=== PATIENT | female | born 1955 | race Caucasian/White ===

== ENCOUNTER 2020-06-19 16:54 | Emergency (ER) | payer OTHER ==
[2020-06-19 19:31] LABS: BASOPHIL 1.1 % (0-2); EOSINOPHIL 0.1 % (0-7); HCT 43.7 % (37.0-47.0); HGB 14.5 g/dl (12.5-16.0); LYMPHOCYTE 36.4 % (15-48); MCH 30.4 pg (25.0-31.0); MCHC 33.2 g/dL (32.0-36.0); MCV 91.6 fL (78.0-100.0); MONOCYTE 8.6 % (0-12); MPV 11.7 fL (6.0-9.5); NEUTROPHIL 53.7 % (41-80); NRBC 0; PLT 190 K/uL (150-400); RBC 4.77 M/uL (4.20-5.40); RDW 12.9 % (11.5-14.0); WBC 8.5 K/uL (4.0-10.5)
[2020-06-19 19:37] LABS: ALBUMIN 3.2 g/dL (3.4-5.0); BILIRUBIN - TOTAL 0.3 mg/dL (0.2-1.0); BUN/CREAT RATIO (CALC) 29.5 RATIO; CREATININE 0.61 mg/dL (0.51-0.95); GLOBULIN (CALCULATION) 3.5 g/dL; POTASSIUM 4.3 mmol/L (3.5-5.1); TOTAL PROTEIN 6.7 g/dL (6.4-8.2)
== END 2020-06-19 21:00 | disposition home or self-care (01) ==
LOC: FER 16:54
PROVIDERS: Nurse Practitioner Family
DX: N64.4 Mastodynia (principal); M79.622 Pain in left upper arm; M79.621 Pain in right upper arm; I10 Essential (primary) hypertension; F32.9 Major depressive disorder, single episode, unspecified; K21.9 Gastro-esophageal reflux disease without esophagitis; F90.9 Attention-deficit hyperactivity disorder, unspecified type; Z88.8 Allergy status to other drugs, medicaments and biological substances; Z79.899 Other long term (current) drug therapy
CPT/HCPCS: 36415; 71046; 80053; 85025